=== PATIENT | female | born 1935 | race Caucasian/White ===

== ENCOUNTER 2016-10-30 07:11 | Day surgery (SDC) ==
[2016-10-30] MEDS ORDERED: LR 1,000 ML ONE (07:38)
[2016-10-30] MEDS ORDERED: FLEET ENEMA PR ONE (08:15)
[2016-10-30] MEDS ORDERED: MYLICON DROPS (DOSE) MISC ONE (10:43)
[2016-10-30] MEDS ORDERED: XYLOCAINE-MPF 2% ONE (11:44)
[2016-10-30 11:45] VITALS: BP 158/85
--- NOTE | 2016-10-30 13:41 | OPERATIVE NOTE ---
PROCEDURE DATE: 10/30/2016 REFERRING PHYSICIAN: Jhon Han MD INDICATIONS FOR PROCEDURE: 1. History of colon polyps. 2. Diverticulosis. 3. Constipation. 4. Persistent nausea with vomiting. PROCEDURES PERFORMED: 1. Colonoscopy with polypectomy. 2. Colonoscopy with ablation. CONSENT: Informed consent was obtained from the patient prior to the procedure. The risks, benefits, and alternatives were discussed. It should be noted that an EGD was offered to the patient, but she refused, stating that she feels better, although she continues to have nausea with vomiting. MEDICATION: The patient received monitored anesthesia care. PERFORMING PHYSICIAN: Kiara Cortez MD. ASSISTANTS: 1. ST Cristian. 2. Marquise Vyas RN. 3. Patsy Echeverria CRNA. 4. Eugenio Sin MD (Anesthesia). COMPLICATIONS: There were no complications. ESTIMATED BLOOD LOSS: Less than 1 mL. SPECIMENS REMOVED: Multiple colon polyps from the rectum to 20 cm. CECAL INTUBATION TIME: 4 minutes. WITHDRAWAL TIME: 22 minutes. PREP QUALITY: Fair. FINDINGS: After sedation was achieved, the pediatric colonoscope was inserted to the terminal ileum. The terminal ileum, ileocecal valve, and appendiceal orifice appeared normal. Throughout the colon, there was diverticulosis with branching diverticula. There were both wide-mouth and small mouth diverticula present. There was no stigmata of bleeding. There were nonbleeding AVMs at 35 cm. In the rectosigmoid area and in the rectum, there were multiple sessile and flat polyps. Eight polyps that were greater than 6 mm were removed using snare cautery. Thirty-eight polyps that were 3-6 mm in size were ablated using wire coagulation. In the upper rectum, there were grade 1 internal hemorrhoids. On retroflexed view, there were medium external hemorrhoids that were nonbleeding. After the exam was complete, the lumen was decompressed and the scope was removed without incident. IMPRESSION: 1. Pandiverticulosis. 2. Nonbleeding arteriovenous malformations. 3. Multiple sessile and flat colon polyps, status post polypectomy and ablation. 4. Grade 1 internal hemorrhoids. 5. Medium external hemorrhoids. RECOMMENDATIONS: 1. Await biopsy results. 2. Continue high-fiber diet. 3. Continue stool softener. 4. Resume aspirin and Plavix on 11/03/2016. 5. We will prescribe Levaquin 500 mg daily for 7 days to prevent postpolypectomy syndrome. 6. Given the number of polyps, I recommended repeat colonoscopy in 1 year; however, the patient refuses, stating that she thinks she is getting too old for this procedure. 7. To further evaluate the refractory nausea, vomiting, and GERD, the patient is agreeable to having a gastric emptying study. She again refuses repeat EGD. We will have the patient return to clinic in May 2017, at her request, to assess interval progress.
[2016-10-30] MEDS ORDERED: DIPRIVAN 1% 50 ML ONE (19:00)
== END 2016-10-30 12:05 | disposition home or self-care (01) ==
LOC: ENDO 07:11
PROVIDERS: ATTEND Internal Medicine Gastroenterology
DX: K62.1 Rectal polyp (principal); Z86.010 Personal history of colon polyps; K57.90 Diverticulosis of intestine, part unspecified, without perforation or abscess without bleeding; Q27.33 Arteriovenous malformation of digestive system vessel; K64.0 First degree hemorrhoids; K64.4 Residual hemorrhoidal skin tags
CPT/HCPCS: 88305; J7120